=== PATIENT | male | born 1995 | race African-American/Black ===

== ENCOUNTER 2017-05-11 17:39 | Emergency (ER) | payer OTHER ==
[~2017-05-11] VITALS: Ht 170.2 cm; Wt 90.7 kg
[~2017-05-11 17:39] MED LIST: FLEXERIL10 MG PO; MOTRIN800 MG PO; NAPROSYN500 MG PO; PREDNISONE20 MG PO; PREVACID 24HR15 MG PO; VITAMIN D; ZANTAC150 M1 PO; ZITHROMAX Z-PA250 MG PO
[2017-05-11] MEDS ORDERED: NORCO 7.5/321 TABLET PO (19:52)
[2017-05-11] MEDS ORDERED: MOTRIN800 MG PO (19:52)
[2017-05-11 20:06] VITALS: BP 121/67
== END 2017-05-11 20:10 | disposition home or self-care (01) ==
LOC: EME 17:39
DX: S46.002A Unspecified injury of muscle(s) and tendon(s) of the rotator cuff of left shoulder, initial encounter (principal); X50.0XXA Overexertion from strenuous movement or load, initial encounter; Y93.89 Activity, other specified; Y99.0 Civilian activity done for income or pay; Y92.512 Supermarket, store or market as the place of occurrence of the external cause
CPT/HCPCS: 73030; 99281; 99284

== ENCOUNTER 2017-09-16 01:12 | Emergency (ER) | payer OTHER ==
[~2017-09-16] VITALS: Ht 177.8 cm; Wt 93.9 kg
[~2017-09-16 01:12] MED LIST changes: +NORCO 7.5/321 TABLET PO
[2017-09-16 03:33] VITALS: BP 139/89
== END 2017-09-16 03:33 | disposition home or self-care (01) ==
LOC: EME 01:12
DX: S61.211A Laceration without foreign body of left index finger without damage to nail, initial encounter (principal); W26.0XXA Contact with knife, initial encounter; Y99.0 Civilian activity done for income or pay; Z23 Encounter for immunization
CPT/HCPCS: 73130